=== PATIENT | female | born 1965 | race Caucasian/White ===

== ENCOUNTER → 2020-11-28 13:01 | Outpatient (REF) | payer BC, SELFPAY | LOC: ANHLAB 13:01 | PROVIDERS: PCP Nurse Practitioner Family; Visit Provider Nurse Practitioner | DX: L72.0 Epidermal cyst (principal) | CPT/HCPCS: 88304 ==

== ENCOUNTER 2022-09-17 00:56 | Day surgery (SDC) | payer BC, SELFPAY ==
[2022-09-08 14:50] VITALS: BMI 33.3
--- NOTE | 2022-09-16 13:16 | WPDANESEPPF ---
Anes - Initial Pre Proc Eval Procedure: Operation Date: 09/17/22 07:30 Proposed Procedures p Screening Colonoscopy - Rodney Lopez MD Date/Time: 09/16/22 13:16 Surgeon: Rodney Lopez MD Pre Op Diagnosis: history of colon polyps Patient Data Age: 57 Gender: F Height: 1.65 m Weight: 91 kg Allergies Allergy/AdvReac Type Severity Reaction Status Date / Time No Known Allergies Allergy Verified 09/17/22 06:18 Home Medications Medication Instructions Recorded Confirmed Type calcium carbonate 600 mg calcium 600 mg PO DAILY 10/22/20 09/17/22 History (1,500 mg) tablet (Calcium) [id number] 750 tablet PO BID 10/22/20 09/17/22 History 750 mg-100 mg-125 mg-1.65 mg tablet (Glucosamine Chondroit Complx Advan) multivitamin 1 tablet PO DAILY 10/22/20 09/17/22 History pravastatin 20 mg tablet 20 mg PO DAILY 10/22/20 09/17/22 History Patient hx anesthesia problems: none Family hx anesthesia problems: none Results Review: All pre-operative results and documents have been reviewed as part of the pre-operative evaluation. PENDING SALE TO [facility] Past Medical History Medical History High cholesterol Obesity Surgical History Surgical History History of delivery 1986 Family History Family History Father Cancer Mother Arthritis, rheumatoid Grandparent Breast cancer Social History Social History Years smoked: 7 Smoking status: Former smoker Tobacco type: cigarettes Alcohol intake: current Alcohol use details: OCCASIONALLY Substance use: never Substance use type: does not use Living arrangements: with family Spiritual care concerns: No Anes - Eval Final PreProcedure Day of Procedure 09/16/22 13:16 Patient weight: obese Heart: regular rate and rhythm Lungs: clear to auscultation and normal air movement Airway: Mallampati scale class II Neurological: alert and oriented Last oral intake: >/= 8 hours ASA classification: II Emergent: no Anesthetic plan: proceed Anesthesia type and monitoring: general GIVS Results Review: All pre-operative results and documents have been reviewed as part of the pre-operative evaluation. Informed Consent: The patient's anesthetic plan and its attendant risks and benefits were discussed with the patient/family/POA. Questions were solicited and answers provided to the satisfaction of the patient/family/POA.
--- NOTE | 2022-09-16 17:03 | PM.HPGS ---
History of Present Illness History of Present Illness Consent: Risks, benefits, and alternatives have been discussed and questions answered. Patient agrees to proceed with procedure. Chief complaint: history of colon polyps Narrative: Maryanne Espino is a 57 year old female Who is here for colon cancer screening. Five years ago I had removed a polyp from her colon Review of Systems Review of Systems: All systems reviewed & are unremarkable except as noted in HPI and below PMFSH Past Medical History Medical History High cholesterol Obesity Surgical History Surgical History History of delivery 1986 Family History Family History Father Cancer Mother Arthritis, rheumatoid Grandparent Breast cancer Social History Social History Years smoked: 7 Smoking status: Former smoker Tobacco type: cigarettes Alcohol intake: current Alcohol use details: OCCASIONALLY Substance use: never Substance use type: does not use Living arrangements: with family Spiritual care concerns: No Meds Home Medications and Allergies Home Medications Medication Instructions Recorded Confirmed Type calcium carbonate 600 mg calcium 600 mg PO DAILY 10/22/20 09/17/22 History (1,500 mg) tablet (Calcium) [id number] 750 tablet PO BID 10/22/20 09/17/22 History 750 mg-100 mg-125 mg-1.65 mg tablet (Glucosamine Chondroit Complx Advan) multivitamin 1 tablet PO DAILY 10/22/20 09/17/22 History pravastatin 20 mg tablet 20 mg PO DAILY 10/22/20 09/17/22 History Allergies Allergy/AdvReac Type Severity Reaction Status Date / Time No Known Allergies Allergy Verified 09/17/22 06:18 Exam Resp: Auscultation: clear to auscultation bilaterally Cardio: Rate: regular rate Rhythm: regular rhythm GI: GI Palp: Yes Soft to palpation and No Tenderness to palpation present (GI) Assessment and Plan Assessment and plan (1) Colon cancer screening: Code(s): Z12.11 - Encounter for screening for malignant neoplasm of colon Status: Acute Assessment and Plan: Colonoscopy with possible biopsy or polypectomy or cautery or injection of substances.
[2022-09-17 06:12] VITALS: BP 143/76; PULSE 101; RESP 18; TEMP 36.1; O2SAT 98; BMI 34.0
[2022-09-17] MEDS: LACTATED RINGERS 1,000 ML 150 ML IV CONT (06:30)
[2022-09-17 07:51] VITALS: BP 107/66; PULSE 80; RESP 20; O2SAT 100
[2022-09-17 08:01] VITALS: BP 127/74; PULSE 70; RESP 20; O2SAT 100
--- NOTE | 2022-09-17 08:05 | SUR.OPER ---
pt had 2 rectal polyps, one was unable to be retrieved. dr hawkins is aware.
[2022-09-17 08:11] VITALS: BP 123/88; PULSE 70; RESP 20; O2SAT 100
== END 2022-09-17 08:25 | disposition home or self-care (01) ==
PROVIDERS: PCP Nurse Practitioner Family; Visit Provider Internal Medicine Gastroenterology
PROC: 0DJD8ZZ Inspection of Lower Intestinal Tract, Via Natural or Artificial Opening Endoscopic (ICD-10-PCS; CPT 45378; principal; 2022-09-17 07:30)
DX: Z12.11 Encounter for screening for malignant neoplasm of colon (principal); K57.30 Diverticulosis of large intestine without perforation or abscess without bleeding; K62.1 Rectal polyp; E78.00 Pure hypercholesterolemia, unspecified; E66.9 Obesity, unspecified; Z68.34 Body mass index [BMI] 34.0-34.9, adult; Z87.891 Personal history of nicotine dependence
CPT/HCPCS: 45380; 45385; 88305; J2704; J7120